=== PATIENT | female | born 2000 | race Two or more races ===

== ENCOUNTER 2022-06-08 16:56 | Emergency (ER) | payer MEDICAID ==
[~2022-06-08] VITALS: Ht 165.1 cm; Wt 46.7 kg
[2022-06-08] MEDS ORDERED: ACETAMINOPHEN 500 MG TABLET PO ONE (17:45)
[2022-06-08] MEDS ORDERED: KETOROLAC TROMETHAMINE 30 MG/ML VIAL IM ONE (19:15)
[2022-06-08 19:34] VITALS: BP 124/68
== END 2022-06-08 19:44 | disposition home or self-care (01) ==
LOC: EMS 16:57
DX: S09.90XA Unspecified injury of head, initial encounter (principal); F17.210 Nicotine dependence, cigarettes, uncomplicated; F12.90 Cannabis use, unspecified, uncomplicated; X58.XXXA Exposure to other specified factors, initial encounter; Y93.89 Activity, other specified; Y92.89 Other specified places as the place of occurrence of the external cause; Y99.8 Other external cause status
CPT/HCPCS: 99285; 70450; 96372; J1885

== ENCOUNTER 2023-04-11 15:04 | Emergency (ER) | payer MEDICAID ==
[~2023-04-11] VITALS: Ht 165.1 cm; Wt 50.0 kg
[2023-04-11 15:17] VITALS: BP 103/71; PULSE 67; RESP 18; TEMP 98.6
== END 2023-04-11 17:08 | disposition left against medical advice (07) ==
LOC: EMS 15:10
DX: S01.01XA Laceration without foreign body of scalp, initial encounter (principal); Z53.21 Procedure and treatment not carried out due to patient leaving prior to being seen by health care provider; X58.XXXA Exposure to other specified factors, initial encounter; Y93.89 Activity, other specified; Y92.89 Other specified places as the place of occurrence of the external cause; Y99.8 Other external cause status
CPT/HCPCS: 99281; Z7502